=== PATIENT | female | born 1990 | race Caucasian/White ===

== ENCOUNTER 2016-12-26 05:25 | Inpatient (IN) | payer OTHER ==
[2016-12-26] MEDS ORDERED: ceFAZolin 2 GM in Premix Bag 1 BAG IV ONE (05:45)
[2016-12-26] MEDS ORDERED: Oxytocin 10 Units/1 ML SDV IM PRN (05:45)
[2016-12-26] MEDS ORDERED: Citric Acid/Sodium Citrate Solution 30 ML Cup PO ONE (05:45)
[2016-12-26] MEDS ORDERED: Sodium Chloride 0.9% 10 ML Syringe FLUSH PRN (05:45)
[2016-12-26] MEDS ORDERED: Sodium Chloride 0.9% 2.5 ML Syringe FLUSH PRN (05:45)
--- NOTE | 2016-12-26 06:48 | PCM.PREANE ---
Preanesthetic Assessment - Anesthesia/Transfusion/Family Hx Anesthesia History: Prior Anesthesia Without Reaction Family History of Anesthesia Reaction: No Transfusion History: Prior Transfusion Without Reaction Intubation History: Unknown - Review of Systems General: No Symptoms Pulmonary: No Symptoms Cardiovascular: No Symptoms Gastrointestinal: No symptoms Neurological: No Symptoms Other: Reports: None - Physical Assessment Height: 1.68 m Weight: 86.183 kg ASA Class: 2 Mental Status: Alert & Oriented x3 Airway Class: Mallampati = 2 Dentition: Reports: Normal Dentition Thyro-Mental Finger Breadths: 3 Mouth Opening Finger Breadths: 3 ROM/Head Extension: Full Lungs: Clear to auscultation, Normal respiratory effort Cardiovascular: Regular Rate, Regular Rhythm - Lab Values: Laboratory Last Values WBC 9.08 K/uL (4.0-11.0) 12/25/16 12:38 RBC 4.06 M/uL (4.30-5.90) L 12/25/16 12:38 Hgb 12.1 g/dL (12.0-16.0) 12/25/16 12:38 Hct 35.7 % (36.0-46.0) L 12/25/16 12:38 MCV 87.9 fL (80.0-98.0) 12/25/16 12:38 MCH 29.8 pg (27.0-32.0) 12/25/16 12:38 MCHC 33.9 g/dL (31.0-37.0) 12/25/16 12:38 RDW Std Deviation 41.7 fl (28.0-62.0) 12/25/16 12:38 RDW Coeff of Ada 13 % (11.0-15.0) 12/25/16 12:38 Plt Count 206 K/uL (150-400) 12/25/16 12:38 MPV 8.90 fL (7.40-12.00) 12/25/16 12:38 Nucleated RBC % 0.0 /100WBC 12/25/16 12:38 Nucleated RBCs # 0 K/uL 12/25/16 12:38 Blood Type A POSITIVE 12/25/16 12:38 Antibody Screen NEGATIVE 12/25/16 12:38 - Allergies Allergies/Adverse Reactions: Allergies Allergy/AdvReac Type Severity Reaction Status Date / Time No Known Allergies Allergy Verified 12/24/16 10:41 - Blood Blood Available: No - Anesthesia Plan Pre-Op Medication Ordered: None - Acknowledgements Anesthesia Type Planned: Spinal Pt an Appropriate Candidate for the Planned Anesthesia: Yes Alternatives and Risks of Anesthesia Discussed w Pt/Guardian: Yes Pt/Guardian Understands and Agrees with Anesthesia Plan: Yes PreAnesthesia Questionnaire HEENT History: Reports: None Cardiovascular History: Reports: None Other Cardiovascular History: hypertension in Respiratory History: Reports: None Gastrointestinal History: Reports: GERD Other Gastrointestinal History: during Genitourinary History: Reports: None FRIT MIXER History: Reports: Musculoskeletal History: Reports: None Neurological History: Reports: None, Seizure Other Neuro History: Siezures with illness prior to 1 1/2 years of age, resolved Psychiatric History: Reports: None Endocrine/Metabolic History: Reports: Obesity/BMI 30+ Hematologic History: Reports: Blood Transfusion(s) Other Hematologic History: with last Immunologic History: Reports: None Oncologic (Cancer) History: Reports: None Dermatologic History: Reports: None - Infectious Disease History Infectious Disease History: Reports: Chicken Pox, Human Papilloma Virus (HPV), Measles - Past Surgical History Head Surgeries/Procedures: Reports: None HEENT Surgical History: Reports: None Cardiovascular Surgical History: Reports: None Respiratory Surgical History: Reports: None GI Surgical History: Reports: None Female Surgical History: Reports: Section (under epidural) Endocrine Surgical History: Reports: None Neurological Surgical History: Reports: None Musculoskeletal Surgical History: Reports: None Oncologic Surgical History: Reports: None Dermatological Surgical History: Reports: None - SUBSTANCE USE Smoking Status *Q: Never Smoker Second Hand Smoke Exposure: No Recreational Drug Use History: No - HOME MEDS Home Medications: Home Meds PNV95/Ferrous Fumarate/FA [ Multivitamins] 1 each PO DAILY 01/05/15 [ History] - CURRENT (IN HOUSE) MEDS Current Meds: Current Medications Lactated Ringer's (Ringers, Lactated) 1,000 mls @ 500 mls/hr IV .BOLUS SMITH Oxytocin (Pitocin) 10 unit IM ASDIRECTED PRN PRN Reason: Excessive vaginal bleeding Sodium Chloride (Saline Flush) 10 ml FLUSH ASDIRECTED PRN PRN Reason: Keep Vein Open Sodium Chloride (Saline Flush) 2.5 ml FLUSH ASDIRECTED PRN PRN Reason: Keep Vein Open Discontinued Medications Citric Acid/Sodium Citrate (Bicitra Solution) 30 ml PO ONETIME ONE Stop: 12/26/16 05:46 Cefazolin Sodium/Dextrose 2 gm (/ Premix) 50 mls @ 100 mls/hr IV ONETIME ONE Stop: 12/26/16 06:14
[2016-12-26] MEDS ORDERED: Oxytocin 10 Units/1 ML SDV ONE ×2 (07:16)
[2016-12-26] MEDS ORDERED: Propofol 200 MG/20 ML SDV ONE (07:16)
[2016-12-26] MEDS ORDERED: Ondansetron 4 MG/2 ML SDV ONE (07:17)
[2016-12-26] MEDS ORDERED: Morphine PF 10 MG/10 ML SDV ONE (07:17)
[2016-12-26] MEDS ORDERED: Ketorolac 30 MG/ML SDV ONE (07:17)
[2016-12-26] MEDS ORDERED: ePHEDrine 50 MG/ML SDV ONE (07:25)
[2016-12-26] MEDS: Lactated Ringers 1,000 ML IV SCH ×3 (07:29→08:03)
[2016-12-26] MEDS ORDERED: fentaNYL 100 MCG/2 ML SDV ONE (08:26)
[2016-12-26] MEDS ORDERED: Phenylephrine/Normal Saline 100 MCG/ML 10 ML Syringe ONE (08:42)
[2016-12-26] MEDS ORDERED: Bisacodyl 10 MG Supp RECTAL PRN (08:57)
[2016-12-26] MEDS ORDERED: Aluminum Hydroxide/Magnesium Hydroxide/Simethicone Susp 30 ML Cup PO PRN (08:57)
[2016-12-26] MEDS ORDERED: Ondansetron 4 MG/2 ML SDV IV PRN (08:57)
[2016-12-26] MEDS ORDERED: Simethicone 80 MG Tab.Chew PO PRN (08:57)
[2016-12-26] MEDS ORDERED: Acetaminophen/oxyCODONE 325-5 MG Tab PO PRN ×2 (08:57)
[2016-12-26] MEDS ORDERED: Lanolin 100% Cream 7 GM Tube TOP PRN (08:57)
[2016-12-26] MEDS ORDERED: diphenhydrAMINE 50 MG/ML SDV IVPUSH PRN ×2 (08:57→09:47)
[2016-12-26] MEDS ORDERED: Lactated Ringers 1,000 ML IV SCH (09:00)
--- NOTE | 2016-12-26 09:07 | PCM.OPNOTE ---
- General Post-Op/Procedure Note Date of Surgery/Procedure: 12/26/16 Operative Procedure(s): Repeat LTCS Findings: Term female APGARs 7, 9 weight 3310 gm. Intact placenta with 3V cord Normal appearing pelvis Thin lower uterine segment light meconium stained amniotic fluid Pre Op Diagnosis: 39 week IUP. Previous c section, desires repeat Post-Op Diagnosis: Same Anesthesia Technique: Spinal Primary Surgeon: Rupinder Fischer Fluid Replacement, Intraop: 3,000 EBL in mLs: 400 Condition: Good Free Text/Narrative:: Dictation [id number]
[2016-12-26] MEDS: Ketorolac 30 MG/ML SDV IVPUSH SCH ×3 (09:29→23:19)
[2016-12-26] MEDS ORDERED: fentaNYL 100 MCG/2 ML SDV IVPUSH PRN (09:43)
[2016-12-26] MEDS ORDERED: Naloxone 0.4 MG/ML Syringe IVPUSH PRN (09:43)
[2016-12-26] MEDS ORDERED: Nalbuphine 10 MG/1 ML Vial IVPUSH PRN (09:43)
--- NOTE | 2016-12-26 11:35 | OR ---
SURGEON: Rupinder Fischer M.D. DATE OF PROCEDURE: 12/26/2016 PREOPERATIVE DIAGNOSES: 1. A 39-week intrauterine . 2. Previous section, desires repeat. POSTOPERATIVE DIAGNOSES: 1. A 39 weeks intrauterine . 2. Previous section, desires repeat. PROCEDURE: A repeat low transverse section. ESTIMATED BLOOD LOSS: 400 mL. ANESTHESIA: Spinal. FLUIDS: 3000 mL crystalloid. COMPLICATIONS: None. FINDINGS: Term female, score 7 at 1 minute, 9 at 5 minutes. Weight of 3310 g. Intact placenta, 3-vessel cord. Normal appearing pelvis. Quite thin lower uterine segment noted upon entry and light meconium-stained amniotic fluid observed. DISPOSITION: The patient to PACU, infant to nursery, stable. PROCEDURE IN DETAIL: Jaquelin is a 26-year-old G2, P1, at 39 weeks gestation, presents today for a scheduled repeat delivery. Risks of procedure have been discussed with her. Proper consent obtained. The patient was taken to the operating room, where she underwent spinal anesthetic, was then placed in dorsal supine position with leftward tilt. SCDs to lower extremities. Moss to gravity. She was prepped and draped in usual sterile fashion. Time-out was performed. Anesthesia was tested and found to be adequate. Previous Pfannenstiel scar was now excised, carried down the level of the rectus fascia, which was incised midline and lateralized on either side sharply and bluntly. Superior aspect of the fascia was tented upward, dissected sharply and bluntly away from underlying muscles. Similar aspect was performed at the inferior aspect of fascia. Rectus muscles were now gently dissected in the midline. Peritoneum was entered. Rectus muscle and peritoneum was now lateralized bluntly. Uterine position, position palpated. There was a large amount of dilated vein along the left lateral aspect of the uterus. Care was taken to not enter into this region when performing hysterotomy. The bladder flap was created sharply and bluntly. Bladder was mobilized away from the lower uterine segment. At this juncture, the peritoneal window was visualized along the right lateral aspect of the lower uterine segment. This was entered with blunt end of the scalpel. Hysterotomy was now lateralized bluntly. Amniotomy was performed. Light meconium-stained amniotic fluid was returned. Infant's head is flexed and rotated to an OA position. Fundal pressure was applied. The 's head was delivered followed by anterior shoulder, posterior shoulder, remainder of the body. The infant's oropharynx and nares bulb suctioned. Cord clamped x2 and cut. Infant was handed off to attending nursing staff. Cord arterial, cord venous, cord blood sampling was obtained. The placenta was now delivered. Uterine cavity was cleared of all clot and debris. Hysterotomy repaired using 0 Vicryl in continuous running locked fashion followed by re-imbricating layer. Posterior aspect of the uterus inspected, no defects or hematomas found to be forming. The region was well irrigated suction dried. Colonic gutters were cleared of all clot and debris, well irrigated suction dried. There was an area of oozing along the left lateral aspect of the hysterotomy, repaired with a re-imbricating [id number] suture. Hemostasis thereafter evident except for some mild serosal oozing, which was cauterized. Hemostasis thereafter evident. Self-retaining retractors now gently removed. Bladder blade was placed. Hysterotomy was again inspected, found to be hemostatic. Bladder blade removed. The rectus muscle was now reapproximated using 0 Vicryl with inverted mattress suture technique. Anterior aspect of the muscle and posterior aspect of the fascia was closely inspected. Any areas of oozing were cauterized. The rectus fascia was reapproximated using 0 Vicryl in continuous running fashion beginning laterally on either side meeting in the midline. Subcutaneous tissue was well irrigated suction dried. Any areas of oozing were cauterized. The skin edges were now reapproximated using 3-0 Vicryl on a Gigi needle subcuticular fashion and re-imbricated with 1/2-inch Steri-Strips and Mastisol. Sponge, instrument, and needle counts correct x3. The uterus remained firm. Hemostasis evident. The patient tolerated the procedure well. She will go to PACU in stable condition and infant to nursery. JIM / MICHELLE /[id number]
--- NOTE | 2016-12-26 20:38 | PCM48HPAN ---
Post Anesthesia Note - EVALUATION WITHIN 48HRS OF ANESTHETIC Vital Signs in Normal Range: Yes Patient Participated in Evaluation: Yes Respiratory Function Stable: Yes Airway Patent: Yes Cardiovascular Function Stable: Yes Hydration Status Stable: Yes Pain Control Satisfactory: Yes Nausea and Vomiting Control Satisfactory: Yes Mental Status Recovered: Yes
[2016-12-26] MEDS: Docusate Sodium 100 MG Cap PO SCH (23:22)
[2016-12-27] MEDS: Ketorolac 30 MG/ML SDV IVPUSH SCH ×2 (05:15→21:08)
[2016-12-27] MEDS: Docusate Sodium 100 MG Cap PO SCH ×3 (08:28→21:14)
--- NOTE | 2016-12-27 10:57 | PCM.PNPP ---
- General Info Date of Service: 12/27/16 Functional Status: Reports: pain controlled, tolerating diet, ambulating, urinating - Review of Systems General: Denies: Fever, Weakness Cardiovascular: Denies: Chest Pain, Palpitations, Lightheadedness Gastrointestinal: Reports: Flatus. Denies: Nausea, Vomiting Genitourinary: Denies: flank pain Psychiatric: Reports: no symptoms - General Info Date of Service: 12/27/16 - Patient Data Vital Signs - most recent: Last Vital Signs Temp 36.8 C 12/27/16 08:00 Pulse 91 12/27/16 08:00 Resp 15 12/27/16 08:00 BP 107/55 L 12/27/16 08:00 Pulse Ox 97 12/27/16 08:00 Weight - most recent: 86.183 kg I&O - last 24 hours: Intake & Output 12/26/16 12/27/16 12/27/16 22:59 06:59 14:59 Intake Total 1150 Output Total 600 100 Balance 550 -100 Lab Results - last 24 hrs: Laboratory Results - last 24 hr 12/27/16 Range/Units 05:48 Hgb 8.6 L (12.0-16.0) g/dL Hct 25.1 L (36.0-46.0) % Med Orders - Current: Current Medications Al Hydroxide/Mg Hydroxide (Mag-Al Plus) 30 ml PO Q8H PRN PRN Reason: Heartburn Bisacodyl (Dulcolax) 10 mg RECTAL .ONCE PRN PRN Reason: Constipation Diphenhydramine HCl (Benadryl) 25 mg IVPUSH Q6H PRN PRN Reason: Itching or Nausea Docusate Sodium (Colace) 100 mg PO BID [facility]END[facility] TO [facility] Last Admin: 12/27/16 08:28 Dose: 100 mg Emollient Ointment (Lansinoh Hpa) 0 gm TOP ASDIRECTED PRN PRN Reason: Sore Nipples Lactated Ringer's (Ringers, Lactated) 1,000 mls @ 500 mls/hr IV .BOLUS [facility] Last Admin: 12/26/16 08:03 Dose: 999 mls/hr Lactated Ringer's (Ringers, Lactated) 1,000 mls @ 125 mls/hr IV ASDIRECTED [facility]END[facility] TO [facility] Last Admin: 12/26/16 13:37 Dose: 125 mls/hr Ibuprofen (Motrin) 800 mg PO Q8H PRN PRN Reason: mild pain or fever Ondansetron HCl (Zofran) 4 mg IV Q4H PRN PRN Reason: Nausea/Vomiting Last Admin: 12/26/16 12:09 Dose: 4 mg Oxycodone/Acetaminophen (Percocet 325-5 Mg) 1 tab PO Q4H PRN PRN Reason: Pain (moderate 4-6) Oxycodone/Acetaminophen (Percocet 325-5 Mg) 2 tab PO Q4H PRN PRN Reason: Pain (moderate 4-6) Oxytocin (Pitocin) 10 unit IM ASDIRECTED PRN PRN Reason: Excessive vaginal bleeding Simethicone (Simethicone) 80 mg PO Q4H PRN PRN Reason: Gas Sodium Chloride (Saline Flush) 10 ml FLUSH ASDIRECTED PRN PRN Reason: Keep Vein Open Sodium Chloride (Saline Flush) 2.5 ml FLUSH ASDIRECTED PRN PRN Reason: Keep Vein Open Discontinued Medications Citric Acid/Sodium Citrate (Bicitra Solution) 30 ml PO ONETIME ONE Stop: 12/26/16 05:46 Last Admin: 12/26/16 07:29 Dose: 30 ml Diphenhydramine HCl (Benadryl) 25 mg IVPUSH Q6H PRN PRN Reason: Itching or Nausea Ephedrine Sulfate (Ephedrine Sulfate) Confirm Administered Dose 50 mg .ROUTE .STK-MED ONE Stop: 12/26/16 07:26 Fentanyl (Sublimaze) Confirm Administered Dose 100 mcg .ROUTE .STK-MED ONE Stop: 12/26/16 08:27 Fentanyl (Sublimaze) 50 mcg IVPUSH Q5M PRN PRN Reason: Pain (severe 7-10) Stop: 12/27/16 09:46 Cefazolin Sodium/Dextrose 2 gm (/ Premix) 50 mls @ 100 mls/hr IV ONETIME ONE Stop: 12/26/16 06:14 Ketorolac Tromethamine (Toradol) Confirm Administered Dose 30 mg .ROUTE .STK- MED ONE Stop: 12/26/16 07:18 Ketorolac Tromethamine (Toradol) 30 mg IVPUSH Q6H SMITH Stop: 12/27/16 09:01 Last Admin: 12/27/16 05:15 Dose: 30 mg Morphine Sulfate (Duramorph Pf) Confirm Administered Dose 10 mg .ROUTE .STK-MED ONE Stop: 12/26/16 07:18 Nalbuphine HCl (Nubain) 5 mg IVPUSH Q3H PRN PRN Reason: Pruritis Stop: 12/27/16 09:45 Naloxone HCl (Narcan) 0.1 mg IVPUSH ONETIME PRN PRN Reason: Respiratory Depression Stop: 12/27/16 09:45 Ondansetron HCl (Zofran) Confirm Administered Dose 4 mg .ROUTE .STK-MED ONE Stop: 12/26/16 07:18 Oxytocin (Pitocin) Confirm Administered Dose 10 unit .ROUTE .STK-MED ONE Stop: 12/26/16 07:17 Oxytocin (Pitocin) Confirm Administered Dose 10 unit .ROUTE .STK-MED ONE Stop: 12/26/16 07:17 Phenylephrine HCl (Phenylephrine In Ns 100 Mcg/Ml) Confirm Administered Dose 1 mg .ROUTE .STK-MED ONE Stop: 12/26/16 08:43 Propofol (Diprivan 20 Ml) Confirm Administered Dose 200 mg .ROUTE .STK-MED ONE Stop: 12/26/16 07:17 - Interaction Infant Disposition, : in Room with Family Infant Interaction: Holding Infant Feeding: Breastfed ; Nursed Well Support Person: - Recovery Exam Fundal Tone: Firm Fundal Level: 2 Fingerbreadths Below Umbilicus Fundal Placement: Midline Lochia Amount: Scant Lochia Color: Rubra/Red Perineum Description: Intact, Minimal Bruising/Swelling Episiotomy/Laceration: None Bladder Status: Voiding Urinary Elimination: Voided - Exam General: alert, oriented Lungs: Normal respiratory effort Cardiovascular: Regular Rate, Regular Rhythm Abdomen: bowel sounds present, soft. No: CVA tenderness Extremities: no calf tenderness Wound/Incisions: healing well, dressing dry and intact Psy/Mental Status: alert, normal affect - Problem List & Annotations (1) delivery delivered SNOMED Code(s): 346092074 Code(s): O82 - ENCOUNTER FOR DELIVERY WITHOUT INDICATION Status: Acute Current Visit: No - Problem List Review Problem List Initiated/Reviewed/Updated: Yes - My Orders Last 24 Hours: My Active Orders 12/26/16 Lunch Regular Diet [DIET] - Assessment Assessment:: POD 1 status post repeat c section - Plan Plan:: Patient is doing well overall--ambulate halls, may shower. Continue postoperative cares.
[2016-12-27] MEDS: Ibuprofen 800 MG Tab PO PRN (17:55)
[2016-12-28] MEDS: Ibuprofen 800 MG Tab PO PRN (05:11)
[2016-12-28 08:30] VITALS: BP 126/75
--- NOTE | 2016-12-28 09:20 | PCM.PNPP ---
- General Info Date of Service: 12/28/16 Functional Status: Reports: pain controlled, tolerating diet, ambulating, urinating - Review of Systems General: Denies: Fever, Weakness Pulmonary: Denies: shortness of breath, pleuritic chest pain Cardiovascular: Denies: Chest Pain, Palpitations, Lightheadedness Gastrointestinal: Denies: Flatus, Nausea, Vomiting Genitourinary: Denies: flank pain Psychiatric: Reports: no symptoms - General Info Date of Service: 12/28/16 - Patient Data Vital Signs - most recent: Last Vital Signs Temp 36.7 C 12/28/16 08:00 Pulse 91 12/28/16 08:00 Resp 17 12/28/16 08:00 BP 126/75 12/28/16 08:00 Pulse Ox 97 12/28/16 08:00 Weight - most recent: 86.183 kg Med Orders - Current: Current Medications Al Hydroxide/Mg Hydroxide (Mag-Al Plus) 30 ml PO Q8H PRN PRN Reason: Heartburn Bisacodyl (Dulcolax) 10 mg RECTAL .ONCE PRN PRN Reason: Constipation Diphenhydramine HCl (Benadryl) 25 mg IVPUSH Q6H PRN PRN Reason: Itching or Nausea Docusate Sodium (Colace) 100 mg PO BID [facility] Last Admin: 12/27/16 21:14 Dose: 100 mg Emollient Ointment (Lansinoh Hpa) 0 gm TOP ASDIRECTED PRN PRN Reason: Sore Nipples Lactated Ringer's (Ringers, Lactated) 1,000 mls @ 500 mls/hr IV .BOLUS [facility] Last Admin: 12/26/16 08:03 Dose: 999 mls/hr Lactated Ringer's (Ringers, Lactated) 1,000 mls @ 125 mls/hr IV ASDIRECTED [facility] Last Admin: 12/26/16 13:37 Dose: 125 mls/hr Ibuprofen (Motrin) 800 mg PO Q8H PRN PRN Reason: mild pain or fever Last Admin: 12/28/16 05:11 Dose: 800 mg Ondansetron HCl (Zofran) 4 mg IV Q4H PRN PRN Reason: Nausea/Vomiting Last Admin: 12/26/16 12:09 Dose: 4 mg Oxycodone/Acetaminophen (Percocet 325-5 Mg) 1 tab PO Q4H PRN PRN Reason: Pain (moderate 4-6) Oxycodone/Acetaminophen (Percocet 325-5 Mg) 2 tab PO Q4H PRN PRN Reason: Pain (moderate 4-6) Oxytocin (Pitocin) 10 unit IM ASDIRECTED PRN PRN Reason: Excessive vaginal bleeding Simethicone (Simethicone) 80 mg PO Q4H PRN PRN Reason: Gas Sodium Chloride (Saline Flush) 10 ml FLUSH ASDIRECTED PRN PRN Reason: Keep Vein Open Sodium Chloride (Saline Flush) 2.5 ml FLUSH ASDIRECTED PRN PRN Reason: Keep Vein Open Discontinued Medications Citric Acid/Sodium Citrate (Bicitra Solution) 30 ml PO ONETIME ONE Stop: 12/26/16 05:46 Last Admin: 12/26/16 07:29 Dose: 30 ml Diphenhydramine HCl (Benadryl) 25 mg IVPUSH Q6H PRN PRN Reason: Itching or Nausea Ephedrine Sulfate (Ephedrine Sulfate) Confirm Administered Dose 50 mg .ROUTE .STK-MED ONE Stop: 12/26/16 07:26 Fentanyl (Sublimaze) Confirm Administered Dose 100 mcg .ROUTE .STK-MED ONE Stop: 12/26/16 08:27 Fentanyl (Sublimaze) 50 mcg IVPUSH Q5M PRN PRN Reason: Pain (severe 7-10) Stop: 12/27/16 09:46 Cefazolin Sodium/Dextrose 2 gm (/ Premix) 50 mls @ 100 mls/hr IV ONETIME ONE Stop: 12/26/16 06:14 Last Admin: 12/27/16 21:09 Dose: Not Given Ketorolac Tromethamine (Toradol) Confirm Administered Dose 30 mg .ROUTE .STK- MED ONE Stop: 12/26/16 07:18 Ketorolac Tromethamine (Toradol) 30 mg IVPUSH Q6H SMITH Stop: 12/27/16 09:01 Last Admin: 12/27/16 21:08 Dose: Not Given Morphine Sulfate (Duramorph Pf) Confirm Administered Dose 10 mg .ROUTE .STK-MED ONE Stop: 12/26/16 07:18 Nalbuphine HCl (Nubain) 5 mg IVPUSH Q3H PRN PRN Reason: Pruritis Stop: 12/27/16 09:45 Naloxone HCl (Narcan) 0.1 mg IVPUSH ONETIME PRN PRN Reason: Respiratory Depression Stop: 12/27/16 09:45 Ondansetron HCl (Zofran) Confirm Administered Dose 4 mg .ROUTE .STK-MED ONE Stop: 12/26/16 07:18 Oxytocin (Pitocin) Confirm Administered Dose 10 unit .ROUTE .STK-MED ONE Stop: 12/26/16 07:17 Oxytocin (Pitocin) Confirm Administered Dose 10 unit .ROUTE .STK-MED ONE Stop: 12/26/16 07:17 Phenylephrine HCl (Phenylephrine In Ns 100 Mcg/Ml) Confirm Administered Dose 1 mg .ROUTE .STK-MED ONE Stop: 12/26/16 08:43 Propofol (Diprivan 20 Ml) Confirm Administered Dose 200 mg .ROUTE .STK-MED ONE Stop: 12/26/16 07:17 - Infant Interaction Infant Disposition, : [place] in Room with Family Infant Interaction: Holding Infant Feeding: Breastfed ; Nursed Well Support Person: - Recovery Exam Fundal Tone: Firm Fundal Level: 2 Fingerbreadths Below Umbilicus Fundal Placement: Midline Lochia Amount: Scant Lochia Color: Rubra/Red Perineum Description: Intact, Minimal Bruising/Swelling Episiotomy/Laceration: None Bladder Status: Voiding Urinary Elimination: Voided - Exam General: alert, oriented Lungs: Normal respiratory effort Cardiovascular: Regular Rate, Regular Rhythm Abdomen: bowel sounds present, soft. No: CVA tenderness Skin: warm, dry, intact Psy/Mental Status: alert, normal affect - Problem List & Annotations (1) delivery delivered SNOMED Code(s): 198348046 Code(s): O82 - ENCOUNTER FOR DELIVERY WITHOUT INDICATION Status: Acute Current Visit: No - Problem List Review Problem List Initiated/Reviewed/Updated: Yes - My Orders Last 24 Hours: My Active Orders 12/28/16 09:16 Ready for Discharge [RC] PER UNIT ROUTINE - Assessment Assessment:: POD 2 status post repeat c section - Plan Plan:: Patient is feeling well, would like to go home today. Discharge instructions reviewed. Infection and bleeding warnings reviewed. Discharge instructions reviewed.
== END 2016-12-28 11:05 | disposition home or self-care (01) | DRG 766 ==
LOC: MW.OB 05:48
PROVIDERS: ADMIT Obstetrics & Gynecology; ATTEND Obstetrics & Gynecology
PROC: 10D00Z1 Extraction of Products of Conception, Low, Open Approach (ICD-10-PCS; principal; 2016-12-26)
DX: O34.211 Maternal care for low transverse scar from previous cesarean delivery (principal); Z3A.39 39 weeks gestation of pregnancy; Z37.0 Single live birth
CPT/HCPCS: 01961; 36415; 59025; 85014; 85018; 85027; 86850; 86900; 86901; A9270-GY; J1885; J2270; J2405; J2590; J2704; J3010; J7120

== ENCOUNTER 2018-12-14 09:52 | Inpatient (IN) | payer OTHER ==
[2018-12-14] MEDS: Lactated Ringers 1,000 ML IV SCH ×3 (10:20→11:40)
[2018-12-14] MEDS ORDERED: Sodium Chloride 0.9% 10 ML SDV IV PRN (10:29)
[2018-12-14] MEDS ORDERED: ceFAZolin 2 GM in Premix Bag 1 BAG IV ONE (10:29)
[2018-12-14] MEDS ORDERED: Sodium Chloride 0.9% 10 ML Syringe FLUSH PRN (10:29)
[2018-12-14] MEDS ORDERED: Sodium Chloride 0.9% 2.5 ML Syringe FLUSH PRN (10:29)
[2018-12-14] MEDS ORDERED: Oxytocin/0.9 % Sodium Chloride 30 UNIT/500 ML BAG IV SCH (10:30)
[2018-12-14] MEDS ORDERED: Oxytocin/0.9 % Sodium Chloride 30 UNIT/500 ML BAG ONE (11:28)
[2018-12-14] MEDS ORDERED: Morphine PF 10 MG/10 ML SDV ONE (11:28)
[2018-12-14] MEDS ORDERED: Citric Acid/Sodium Citrate Solution 30 ML Cup PO ONE (11:30)
--- NOTE | 2018-12-14 11:41 | PCM.PREANE ---
Preanesthetic Assessment - Anesthesia/Transfusion/Family Hx Anesthesia History: Prior Anesthesia Without Reaction Family History of Anesthesia Reaction: No Transfusion History: Prior Transfusion Without Reaction Intubation History: Unknown - Review of Systems General: No Symptoms Pulmonary: No Symptoms Cardiovascular: No Symptoms Gastrointestinal: No Symptoms Neurological: No Symptoms Other: Reports: None - Physical Assessment Height: 5 ft 6 in Weight: 83.915 kg ASA Class: 2 Mental Status: Alert & Oriented x3 Airway Class: Mallampati = 2 Dentition: Reports: Normal Dentition Thyro-Mental Finger Breadths: 3 Mouth Opening Finger Breadths: 3 ROM/Head Extension: Full Lungs: Clear to Auscultation, Normal Respiratory Effort Cardiovascular: Regular Rate, Regular Rhythm - Lab Values: Laboratory Last Values WBC 5.91 K/uL (4.0-11.0) 12/14/18 10:20 RBC 3.61 M/uL (4.30-5.90) L 12/14/18 10:20 Hgb 10.5 g/dL (12.0-16.0) L 12/14/18 10:20 Hct 31.5 % (36.0-46.0) L 12/14/18 10:20 MCV 87.3 fL (80.0-98.0) 12/14/18 10:20 MCH 29.1 pg (27.0-32.0) 12/14/18 10:20 MCHC 33.3 g/dL (31.0-37.0) 12/14/18 10:20 RDW Std Deviation 43.0 fl (28.0-62.0) 12/14/18 10:20 RDW Coeff of Ada 14 % (11.0-15.0) 12/14/18 10:20 Plt Count 178 K/uL (150-400) 12/14/18 10:20 MPV 9.20 fL (7.40-12.00) 12/14/18 10:20 Nucleated RBC % 0.0 /100WBC 12/14/18 10:20 Nucleated RBCs # 0 K/uL 12/14/18 10:20 - Allergies Allergies/Adverse Reactions: Allergies Allergy/AdvReac Type Severity Reaction Status Date / Time sulfamethoxazole Allergy Hives Verified 12/09/18 13:57 [From Bactrim] trimethoprim [From Bactrim] Allergy Hives Verified 12/09/18 13:57 - Blood Blood Available: No - Anesthesia Plan Pre-Op Medication Ordered: None - Acknowledgements Anesthesia Type Planned: Spinal (general anesthesia back-up plan) Pt an Appropriate Candidate for the Planned Anesthesia: Yes Alternatives and Risks of Anesthesia Discussed w Pt/Guardian: Yes Pt/Guardian Understands and Agrees with Anesthesia Plan: Yes PreAnesthesia Questionnaire HEENT History: Reports: None Cardiovascular History: Reports: None Respiratory History: Reports: None Gastrointestinal History: Reports: GERD Other Gastrointestinal History: during Genitourinary History: Reports: None REHABILITATION ASSISTANT History: Reports: Musculoskeletal History: Reports: None Neurological History: Reports: Seizure Other Neuro History: 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, Psychiatric History: Reports: None Endocrine/Metabolic History: Reports: None Hematologic History: Reports: Anemia, Blood Transfusion(s) Other Hematologic History: transfusion with first Immunologic History: Reports: None Oncologic (Cancer) History: Reports: None Dermatologic History: Reports: None - Infectious Disease History Infectious Disease History: Reports: Chicken Pox, Human Papilloma Virus (HPV), Measles - Past Surgical History Head Surgeries/Procedures: Reports: None HEENT Surgical History: Reports: None Cardiovascular Surgical History: Reports: None Respiratory Surgical History: Reports: None GI Surgical History: Reports: None Female Surgical History: Reports: Section (x2) Endocrine Surgical History: Reports: None Neurological Surgical History: Reports: None Musculoskeletal Surgical History: Reports: None Oncologic Surgical History: Reports: None Dermatological Surgical History: Reports: None - SUBSTANCE USE Smoking Status *Q: Never Smoker Recreational Drug Use History: No - HOME MEDS Home Medications: Home Meds PNV95/Ferrous Fumarate/FA [ Multivitamins] 1 each PO DAILY 01/05/15 [ History] Calcium Carbonate [Tums] 1 tab.chew CHEW ASDIRECTED PRN 12/09/18 [History] - CURRENT (IN HOUSE) MEDS Current Meds: Current Medications Lactated Ringer's (Ringers, Lactated) 1,000 mls @ 500 mls/hr IV BOLUS [facility] Last Admin: 12/14/18 11:12 Dose: 500 mls/hr Oxytocin/Sodium Chloride (Oxytocin 30 Unit/500 Ml-Ns) 30 unit in 500 mls @ 250 mls/hr IV TITRATE [facility] Sodium Chloride (Saline Flush) 10 ml FLUSH ASDIRECTED PRN PRN Reason: Keep Vein Open Sodium Chloride (Saline Flush) 2.5 ml FLUSH ASDIRECTED PRN PRN Reason: Keep Vein Open Sodium Chloride (Normal Saline) 10 ml IV ASDIRECTED PRN PRN Reason: IV Use Discontinued Medications Citric Acid/Sodium Citrate (Bicitra Solution) 30 ml PO ONETIME ONE Stop: 12/14/18 11:31 Cefazolin Sodium/Dextrose 2 gm (/ Premix) 50 mls @ 100 mls/hr IV ONETIME ONE Stop: 12/14/18 10:58 Oxytocin/Sodium Chloride (Oxytocin 30 Unit/500 Ml-Ns) Confirm Administered Dose 30 unit in 500 mls @ as directed .ROUTE .STK-MED ONE Stop: 12/14/18 11:29 Morphine Sulfate (Duramorph Pf) Confirm Administered Dose 10 mg .ROUTE .STK-MED ONE Stop: 12/14/18 11:29
[2018-12-14] MEDS ORDERED: ceFAZolin/Dextrose,Iso-Osmotic 2 GM/50 ML Duplex Bag IV ONE (12:17)
[2018-12-14] MEDS ORDERED: Octyl 2-Cyanoacrylate 1 Tube ONE (12:36)
[2018-12-14] MEDS ORDERED: ePHEDrine 50 MG/ML SDV ONE (12:50)
[2018-12-14] MEDS ORDERED: Phenylephrine/Normal Saline 100 MCG/ML 10 ML Syringe ONE (12:50)
[2018-12-14] MEDS ORDERED: Acetaminophen/oxyCODONE 325-5 MG Tab PO PRN ×3 (12:57→13:10)
[2018-12-14] MEDS ORDERED: Aluminum Hydroxide/Magnesium Hydroxide/Simethicone Susp 30 ML Cup PO PRN (12:57)
[2018-12-14] MEDS ORDERED: Bisacodyl 10 MG Supp RECTAL PRN (12:57)
[2018-12-14] MEDS ORDERED: Ondansetron 4 MG/2 ML SDV IVPUSH PRN ×2 (12:57→13:10)
[2018-12-14] MEDS ORDERED: diphenhydrAMINE 50 MG/ML SDV IVPUSH PRN ×2 (12:57→13:10)
[2018-12-14] MEDS ORDERED: Lanolin 100% Cream 7 GM Tube TOP PRN (12:57)
[2018-12-14] MEDS ORDERED: Lactated Ringers 1,000 ML IV SCH (13:00)
--- NOTE | 2018-12-14 13:06 | PCM.OPNOTE ---
- General Post-Op/Procedure Note Date of Surgery/Procedure: 12/14/18 Operative Procedure(s): Repeat LTCS Findings: Viable female APGARs 9, 9 weight 3890 gm. Intact placenta with 3V cord. Pre Op Diagnosis: 39/5 week IUP. Previous c section x 2--desires repeat Post-Op Diagnosis: Same Anesthesia Technique: Spinal Primary Surgeon: Rupinder Fischer Fluid Replacement, Intraop: 2,500 EBL in mLs: 600 Complications: none known Condition: Good Free Text/Narrative:: Dictation [id number]
[2018-12-14] MEDS ORDERED: fentaNYL 100 MCG/2 ML SDV IVPUSH PRN (13:10)
[2018-12-14] MEDS ORDERED: Naloxone 0.4 MG/ML Syringe IVPUSH PRN (13:10)
[2018-12-14] MEDS ORDERED: Nalbuphine 10 MG/1 ML Vial IVPUSH PRN (13:10)
[2018-12-14] MEDS: Ketorolac 30 MG/ML SDV IVPUSH SCH ×2 (13:17→19:09)
[2018-12-14] MEDS: Simethicone 80 MG Tab.Chew PO SCH (19:09)
--- NOTE | 2018-12-14 20:18 | OR ---
SURGEON: Rupinder Fischer M.D. DATE OF PROCEDURE: 12/14/2018 PREOPERATIVE DIAGNOSES: 1. 39-5/7th week . 2. Previous section, desires repeat. POSTOPERATIVE DIAGNOSIS: 1. 39-5/7th week . 2. Previous section, desires repeat. PROCEDURE PERFORMED: Repeat low-transverse section. PRIMARY SURGEON: Rupinder Fischer M.D. SUPERVISOR REMELT: Laurence Dubose. ANESTHESIA: Spinal. ESTIMATED BLOOD LOSS: 600 mL. FLUIDS: 2500 mL crystalloid. COMPLICATIONS: None. FINDINGS: A viable female, score of 9 at one minute and 9 at five minute, weight of 3890 g, intact placenta, 3-vessel cord. DISPOSITION: Infant to nursery, mom into PACU stable. INDICATION: Jaquelin is a 28-year-old G3, P2 at 39 and 5 weeks' gestational age, who presents today for scheduled repeat delivery. Risks of the procedure have been discussed with her. Proper consent obtained. DESCRIPTION OF PROCEDURE: The patient was taken to the operating room where she underwent spinal anesthesia, was then placed in the dorsal lithotomy position with a leftward tilt. SCDs to lower extremities, Moss to gravity, was prepped and draped in the usual sterile fashion. A time-out was performed. The patient did receive Ancef prophylactically. Anesthesia was tested, found to be adequate. The previous Pfannenstiel scar was now excised. Subcutaneous tissue was incised down to the level of the fascia. Fascia was incised in midline lateralized on either side sharply and bluntly. The superior aspect of fascia was tented up, dissected sharply and bluntly away from underlying muscle. Similar aspect was performed in the inferior aspect of fascia, there definitely is scar tissue present. Rectus muscle around gently in the midline. Peritoneum tented upward and entered sharply. The rectus muscle, peritoneum were now lateralized bluntly. Uterine position and position palpated. A self-retaining retractor was gently placed. Uterovesical reflection was visualized. Bladder flap was created and dissected sharply and bluntly away from the lower uterine segment. Low transverse hysterotomy was now performed. Uterine cavity was entered bluntly with the scalpel. The hysterotomy was lateralized bluntly. head was lifted from the pelvis. Fundal pressure was applied. The infant's head was delivered. Nuchal cord x2 was noted to be present, this was reduced manually. Anterior shoulder, posterior shoulder, and remainder of body was delivered without difficulty. The 's oropharynx and nares bulb suctioned, cord was clamped x2 and cut. Infant was handed off to attending nursing staff. Cord arterial, cord venous, cord blood sampling were obtained. Placenta was now delivered. Uterine cavity was cleared of all clot and debris. The hysterotomy was repaired using 0 Vicryl in a continuous running locked fashion followed by re-imbricating layer. The lower uterine segment was quite thin and scarred at this point. There were re-imbricating sutures placed along the left lateral to midline aspect of the incision to help with hemostasis. Hemostasis thereafter evident. Posterior aspect of the uterus inspected. No defects or hematomas were found to be forming. Region was well irrigated and suction dried. Uterus was returned to the abdominal cavity. Colonic gutters were cleared of all clot and debris, well irrigated and suction dried. Hysterotomy once again inspected and found to be hemostatic. Self-retaining retractor now gently removed. Bladder blade was placed. Hysterotomy once again inspected and found to be hemostatic. The bladder blade was removed. Rectus muscle and peritoneum were reapproximated using 0 Vicryl in inverted mattress suture technique. Anterior aspect of the muscle, posterior aspect of the fascia closely inspected. Any areas of oozing were cauterized. The rectus fascia was now reapproximated using 0 Vicryl in continuous running fashion beginning laterally on either side and meeting in the midline. Subcutaneous tissue was well irrigated, suction dried. Any areas of oozing were cauterized. The skin edges were reapproximated using 3-0 Vicryl on a Gigi needle in subcuticular fashion followed by Dermabond and pressure dressing. Sponge, instrument, and needle counts were correct x2. The patient has tolerated the procedure well overall. She will go to PACU in stable condition with her and nursing staff at her side. JIM / MICHELLE /[id number]
[2018-12-15] MEDS: Ketorolac 30 MG/ML SDV IVPUSH SCH ×3 (02:11→13:43)
[2018-12-15] MEDS: Docusate Sodium 100 MG Cap PO SCH ×3 (02:11→23:21)
[2018-12-15] MEDS: Simethicone 80 MG Tab.Chew PO SCH ×4 (02:11→19:40)
--- NOTE | 2018-12-15 08:41 | PCM.PNPP ---
- General Info Date of Service: 12/15/18 Functional Status: Reports: Pain Controlled, Tolerating Diet, Ambulating, Urinating - Review of Systems General: Reports: Fatigue. Denies: Fever, Weakness Pulmonary: Denies: Shortness of Breath Cardiovascular: Denies: Chest Pain, Palpitations, Lightheadedness Gastrointestinal: Reports: Flatus. Denies: Abdominal Pain, Nausea, Vomiting Genitourinary: Denies: Flank Pain Musculoskeletal: Reports: No Symptoms Skin: Reports: No Symptoms Neurological: Reports: No Symptoms Psychiatric: Reports: No Symptoms - General Info Date of Service: 12/15/18 - Patient Data Vital Signs - Most Recent: Last Vital Signs Temp 36.6 C 12/15/18 07:20 Pulse 98 12/15/18 07:20 Resp 18 12/15/18 07:20 BP 127/63 12/15/18 07:20 Pulse Ox 96 12/15/18 07:20 Weight - Most Recent: 83.915 kg I&O - Last 24 Hours: Intake & Output 12/14/18 12/15/18 12/15/18 22:59 06:59 14:59 Output Total 500 900 Balance -500 -900 Lab Results - Last 24 Hours: Laboratory Results - last 24 hr 12/14/18 12/14/18 12/14/18 Range/Units 10:20 10:20 12:13 WBC 5.91 (4.0-11.0) K/uL RBC 3.61 L (4.30-5.90) M/uL Hgb 10.5 L (12.0-16.0) g/dL Hct 31.5 L (36.0-46.0) % MCV 87.3 (80.0-98.0) fL MCH 29.1 (27.0-32.0) pg MCHC 33.3 (31.0-37.0) g/dL RDW Std Deviation 43.0 (28.0-62.0) fl RDW Coeff of Ada 14 (11.0-15.0) % Plt Count 178 (150-400) K/uL MPV 9.20 (7.40-12.00) fL Nucleated RBC % 0.0 /100WBC Nucleated RBCs # 0 K/uL Cord ABG pH 7.293 (7.18-7.38) Cord ABG Base Excess -5 (-10--2) Cord VBG pH 7.342 (7.25-7.45) Cord VBG Base Excess -5 (-10--2) Blood Type A POSITIVE Antibody Screen NEGATIVE 12/15/18 Range/Units 05:00 WBC (4.0-11.0) K/uL RBC (4.30-5.90) M/uL Hgb 9.4 L (12.0-16.0) g/dL Hct 28.4 L (36.0-46.0) % MCV (80.0-98.0) fL MCH (27.0-32.0) pg MCHC (31.0-37.0) g/dL RDW Std Deviation (28.0-62.0) fl RDW Coeff of Ada (11.0-15.0) % Plt Count (150-400) K/uL MPV (7.40-12.00) fL Nucleated RBC % /100WBC Nucleated RBCs # K/uL Cord ABG pH (7.18-7.38) Cord ABG Base Excess (-10--2) Cord VBG pH (7.25-7.45) Cord VBG Base Excess (-10--2) Blood Type Antibody Screen Med Orders - Current: Current Medications Al Hydroxide/Mg Hydroxide (Mag-Al Plus) 30 ml PO Q8H PRN PRN Reason: Heartburn Bisacodyl (Dulcolax) 10 mg RECTAL ONETIME PRN PRN Reason: Constipation Diphenhydramine HCl (Benadryl) 25 mg IVPUSH Q6H PRN PRN Reason: Itching or Nausea Diphenhydramine HCl (Benadryl) 25 mg IVPUSH Q4H PRN PRN Reason: Itching Stop: 12/15/18 13:10 Docusate Sodium (Colace) 100 mg PO BID [facility] Last Admin: 12/15/18 02:11 Dose: Not Given Emollient Ointment (Lansinoh Hpa) 0 gm TOP ASDIRECTED PRN PRN Reason: Sore Nipples Fentanyl (Sublimaze) 50 mcg IVPUSH Q1H PRN PRN Reason: Pain (severe 7-10) Lactated Ringer's (Ringers, Lactated) 1,000 mls @ 500 mls/hr IV BOLUS [facility] Last Admin: 12/14/18 11:40 Dose: 500 mls/hr Oxytocin/Sodium Chloride (Oxytocin 30 Unit/500 Ml-Ns) 30 unit in 500 mls @ 250 mls/hr IV TITRATE [facility] Lactated Ringer's (Ringers, Lactated) 1,000 mls @ 125 mls/hr IV ASDIRECTED [facility] Last Admin: 12/14/18 14:37 Dose: 125 mls/hr Ibuprofen (Motrin) 800 mg PO Q8H PRN PRN Reason: mild pain or fever Ketorolac Tromethamine (Toradol) 30 mg IVPUSH Q6H [facility] Stop: 12/15/18 13:01 Last Admin: 12/15/18 02:11 Dose: Not Given Nalbuphine HCl (Nubain) 5 mg IVPUSH ASDIRECTED PRN PRN Reason: Itching Naloxone HCl (Narcan) 0.1 mg IVPUSH ONETIME PRN PRN Reason: Respiratory Depression Stop: 12/15/18 13:10 Ondansetron HCl (Zofran) 4 mg IVPUSH Q4H PRN PRN Reason: Nausea/Vomiting Last Admin: 12/14/18 15:28 Dose: 4 mg Ondansetron HCl (Zofran) 4 mg IVPUSH Q6H PRN PRN Reason: Nausea Oxycodone/Acetaminophen (Percocet 325-5 Mg) 1 tab PO Q4H PRN PRN Reason: Pain (moderate 4-6) Oxycodone/Acetaminophen (Percocet 325-5 Mg) 2 tab PO Q4H PRN PRN Reason: Pain (moderate 4-6) Oxycodone/Acetaminophen (Percocet 325-5 Mg) 2 tab PO Q6H PRN PRN Reason: Pain (moderate 4-6) Simethicone (Simethicone) 160 mg PO QID [facility] Last Admin: 12/15/18 06:22 Dose: Not Given Sodium Chloride (Saline Flush) 10 ml FLUSH ASDIRECTED PRN PRN Reason: Keep Vein Open Sodium Chloride (Saline Flush) 2.5 ml FLUSH ASDIRECTED PRN PRN Reason: Keep Vein Open Sodium Chloride (Normal Saline) 10 ml IV ASDIRECTED PRN PRN Reason: IV Use Discontinued Medications Cefazolin Sodium/Dextrose (Ancef) Confirm Administered Dose 2 gm IV .STK-MED ONE Stop: 12/14/18 12:18 Citric Acid/Sodium Citrate (Bicitra Solution) 30 ml PO ONETIME ONE Stop: 12/14/18 11:31 Last Admin: 12/14/18 15:54 Dose: Not Given Ephedrine Sulfate (Ephedrine Sulfate) Confirm Administered Dose 50 mg .ROUTE .STK-MED ONE Stop: 12/14/18 12:51 Cefazolin Sodium/Dextrose 2 gm (/ Premix) 50 mls @ 100 mls/hr IV ONETIME ONE Stop: 12/14/18 10:58 Last Admin: 12/14/18 15:54 Dose: Not Given Oxytocin/Sodium Chloride (Oxytocin 30 Unit/500 Ml-Ns) Confirm Administered Dose 30 unit in 500 mls @ as directed .ROUTE .STK-MED ONE Stop: 12/14/18 11:29 Morphine Sulfate (Duramorph Pf) Confirm Administered Dose 10 mg .ROUTE .STK-MED ONE Stop: 12/14/18 11:29 Octyl Cyanoacrylate (Dermabond Advance) Confirm Administered Dose 1 applic .ROUTE .STK-MED ONE Stop: 12/14/18 12:37 Phenylephrine HCl (Phenylephrine In Ns 100 Mcg/Ml) Confirm Administered Dose 1 mg .ROUTE .STK-MED ONE Stop: 12/14/18 12:51 - Infant Interaction Support Person: - Recovery Exam Fundal Tone: Firm Fundal Level: At Umbilicus Fundal Placement: Midline Lochia Amount: Scant Lochia Color: Rubra/Red Perineum Description: Intact, Minimal Bruising/Swelling Episiotomy/Laceration: Approximated Bladder Status: Indwelling Catheter in Place Urinary Elimination: Indwelling Catheter - Exam General: Alert, Oriented Lungs: Normal Respiratory Effort Cardiovascular: Regular Rate, Regular Rhythm GI/Abdominal Exam: Normal Bowel Sounds, Soft Extremities: Pedal Edema (1+). No: Sheila's Sign Skin: Warm, Dry, Intact Wound/Incisions: Healing Well, No Drainage. No: Erythema Neurological: No New Focal Deficit Psy/Mental Status: Alert, Normal Affect, Normal Mood - Problem List & Annotations (1) Previous section SNOMED Code(s): 826318844 Code(s): Z98.891 - HISTORY OF UTERINE SCAR FROM PREVIOUS SURGERY Status: Acute Current Visit: Yes - Problem List Review Problem List Initiated/Reviewed/Updated: Yes - My Orders Last 24 Hours: My Active Orders 12/14/18 10:00 Patient Status [ADT] Routine 12/14/18 10:29 Up ad Jenn [RC] ASDIRECTED Verify Patient Consent Obtain [RC] ASDIRECTED Sodium Chloride 0.9% [Normal Saline] 10 ml IV ASDIRECTED PRN Sodium Chloride 0.9% [Saline Flush] 10 ml FLUSH ASDIRECTED PRN Sodium Chloride 0.9% [Saline Flush] 2.5 ml FLUSH ASDIRECTED PRN Peripheral IV Insertion Adult [OM.PC] Routine Schedule Procedure [COMM] Per Unit Routine Resuscitation Status Routine 12/14/18 10:30 Lactated Ringers [Ringers, Lactated] 1,000 ml IV BOLUS Oxytocin/0.9 % Sodium Chloride [Oxytocin 30 Unit/500 ML-NS] 30 unit in 500 ml IV TITRATE 12/14/18 10:31 Notify Provider Vital Signs [RC] PRN 12/14/18 12:57 Patient Status [ADT] Routine Ambulate [RC] PER UNIT ROUTINE Communication Order [RC] PER UNIT ROUTINE Communication Order [RC] PER UNIT ROUTINE Communication Order [RC] Per Unit Routine May Shower [RC] ASDIRECTED Notify Provider Intake and Out [RC] ASDIRECTED Notify Provider Vital Signs [RC] ASDIRECTED RT Incentive Spirometry [RC] Q2HWA Vital Signs [RC] PER UNIT ROUTINE Acetaminophen/oxyCODONE [Percocet 325-5 MG] 1 tab PO Q4H PRN Acetaminophen/oxyCODONE [Percocet 325-5 MG] 2 tab PO Q4H PRN Alum Hydrox/Mag Hydrox/Simeth [Mag-Al Plus] 30 ml PO Q8H PRN Bisacodyl [Dulcolax] 10 mg RECTAL ONETIME PRN Ibuprofen [Motrin] 800 mg PO Q8H PRN Lanolin [Lansinoh HPA] See Dose Instructions TOP ASDIRECTED PRN Ondansetron [Zofran] 4 mg IVPUSH Q4H PRN diphenhydrAMINE [Benadryl] 25 mg IVPUSH Q6H PRN Abdominal Binder [OM.PC] Routine Assess Lochia [WOMSER] Per Unit Routine Assess Uterine Involution [WOMSER] Per Unit Routine Breast Pump [WOMSER] Per Unit Routine Heat Therapy [OM.PC] Routine Ice Therapy [OM.PC] Routine Peripheral IV Discontinue [OM.PC] Routine Sequential Compression Device [OM.PC] Per Unit Routine 12/14/18 12:58 Antiembolic Devices [RC] PER UNIT ROUTINE 12/14/18 13:00 Ketorolac [Toradol] 30 mg IVPUSH Q6H Lactated Ringers [Ringers, Lactated] 1,000 ml IV ASDIRECTED 12/14/18 18:00 Simethicone 160 mg PO QID 12/14/18 21:00 Docusate Sodium [Colace] 100 mg PO BID 12/14/18 Lunch Regular Diet [DIET] - Assessment Assessment:: POD 1 status post repeat c section - Plan Plan:: Continue postoperative cares, ambulate halls today.
--- NOTE | 2018-12-15 10:17 | PCM48HPAN ---
Post Anesthesia Note - EVALUATION WITHIN 48HRS OF ANESTHETIC Vital Signs in Normal Range: Yes Patient Participated in Evaluation: Yes Respiratory Function Stable: Yes Airway Patent: Yes Cardiovascular Function Stable: Yes Hydration Status Stable: Yes Pain Control Satisfactory: Yes Nausea and Vomiting Control Satisfactory: Yes Resp Rate: 14
[2018-12-15] MEDS: Ibuprofen 800 MG Tab PO PRN (19:39)
[2018-12-16] MEDS: Simethicone 80 MG Tab.Chew PO SCH ×2 (00:43→07:15)
[2018-12-16] MEDS: Ibuprofen 800 MG Tab PO PRN (04:12)
[2018-12-16 07:58] VITALS: BP 117/81
[2018-12-16] MEDS: Docusate Sodium 100 MG Cap PO SCH (08:43)
--- NOTE | 2018-12-16 08:47 | PCM.PNPP ---
- General Info Date of Service: 12/16/18 Functional Status: Reports: Pain Controlled, Tolerating Diet, Ambulating, Urinating - Review of Systems General: Denies: Fever, Weakness, Fatigue Pulmonary: Denies: Shortness of Breath Cardiovascular: Denies: Chest Pain, Palpitations, Lightheadedness Gastrointestinal: Reports: Flatus. Denies: Abdominal Pain, Nausea, Vomiting Genitourinary: Reports: No Symptoms Musculoskeletal: Reports: No Symptoms Skin: Reports: No Symptoms Neurological: Reports: No Symptoms Psychiatric: Reports: No Symptoms - General Info Date of Service: 12/16/18 - Patient Data Vital Signs - Most Recent: Last Vital Signs Temp 36.3 C 12/16/18 07:45 Pulse 93 12/16/18 07:45 Resp 17 12/16/18 07:45 BP 117/81 12/16/18 07:45 Pulse Ox 97 12/16/18 07:45 Weight - Most Recent: 83.915 kg Med Orders - Current: Current Medications Al Hydroxide/Mg Hydroxide (Mag-Al Plus) 30 ml PO Q8H PRN PRN Reason: Heartburn Bisacodyl (Dulcolax) 10 mg RECTAL ONETIME PRN PRN Reason: Constipation Diphenhydramine HCl (Benadryl) 25 mg IVPUSH Q6H PRN PRN Reason: Itching or Nausea Docusate Sodium (Colace) 100 mg PO BID [facility] Last Admin: 12/16/18 08:43 Dose: 100 mg Emollient Ointment (Lansinoh Hpa) 0 gm TOP ASDIRECTED PRN PRN Reason: Sore Nipples Last Admin: 12/15/18 08:43 Dose: 1 applic Fentanyl (Sublimaze) 50 mcg IVPUSH Q1H PRN PRN Reason: Pain (severe 7-10) Lactated Ringer's (Ringers, Lactated) 1,000 mls @ 500 mls/hr IV BOLUS [facility] Last Admin: 12/14/18 11:40 Dose: 500 mls/hr Oxytocin/Sodium Chloride (Oxytocin 30 Unit/500 Ml-Ns) 30 unit in 500 mls @ 250 mls/hr IV TITRATE [facility] Lactated Ringer's (Ringers, Lactated) 1,000 mls @ 125 mls/hr IV ASDIRECTED [facility] Last Admin: 12/14/18 14:37 Dose: 125 mls/hr Ibuprofen (Motrin) 800 mg PO Q8H PRN PRN Reason: mild pain or fever Last Admin: 12/16/18 04:12 Dose: 800 mg Nalbuphine HCl (Nubain) 5 mg IVPUSH ASDIRECTED PRN PRN Reason: Itching Ondansetron HCl (Zofran) 4 mg IVPUSH Q4H PRN PRN Reason: Nausea/Vomiting Last Admin: 12/14/18 15:28 Dose: 4 mg Ondansetron HCl (Zofran) 4 mg IVPUSH Q6H PRN PRN Reason: Nausea Oxycodone/Acetaminophen (Percocet 325-5 Mg) 1 tab PO Q4H PRN PRN Reason: Pain (moderate 4-6) Oxycodone/Acetaminophen (Percocet 325-5 Mg) 2 tab PO Q4H PRN PRN Reason: Pain (moderate 4-6) Oxycodone/Acetaminophen (Percocet 325-5 Mg) 2 tab PO Q6H PRN PRN Reason: Pain (moderate 4-6) Simethicone (Simethicone) 160 mg PO QID [facility] Last Admin: 12/16/18 07:15 Dose: Not Given Sodium Chloride (Saline Flush) 10 ml FLUSH ASDIRECTED PRN PRN Reason: Keep Vein Open Sodium Chloride (Saline Flush) 2.5 ml FLUSH ASDIRECTED PRN PRN Reason: Keep Vein Open Sodium Chloride (Normal Saline) 10 ml IV ASDIRECTED PRN PRN Reason: IV Use Discontinued Medications Cefazolin Sodium/Dextrose (Ancef) Confirm Administered Dose 2 gm IV .STK-MED ONE Stop: 12/14/18 12:18 Citric Acid/Sodium Citrate (Bicitra Solution) 30 ml PO ONETIME ONE Stop: 12/14/18 11:31 Last Admin: 12/14/18 15:54 Dose: Not Given Diphenhydramine HCl (Benadryl) 25 mg IVPUSH Q4H PRN PRN Reason: Itching Stop: 12/15/18 13:10 Ephedrine Sulfate (Ephedrine Sulfate) Confirm Administered Dose 50 mg .ROUTE .STK-MED ONE Stop: 12/14/18 12:51 Cefazolin Sodium/Dextrose 2 gm (/ Premix) 50 mls @ 100 mls/hr IV ONETIME ONE Stop: 12/14/18 10:58 Last Admin: 12/14/18 15:54 Dose: Not Given Oxytocin/Sodium Chloride (Oxytocin 30 Unit/500 Ml-Ns) Confirm Administered Dose 30 unit in 500 mls @ as directed .ROUTE .STK-MED ONE Stop: 12/14/18 11:29 Ketorolac Tromethamine (Toradol) 30 mg IVPUSH Q6H [facility] Stop: 12/15/18 13:01 Last Admin: 12/15/18 13:43 Dose: Not Given Morphine Sulfate (Duramorph Pf) Confirm Administered Dose 10 mg .ROUTE .STK-MED ONE Stop: 12/14/18 11:29 Naloxone HCl (Narcan) 0.1 mg IVPUSH ONETIME PRN PRN Reason: Respiratory Depression Stop: 12/15/18 13:10 Octyl Cyanoacrylate (Dermabond Advance) Confirm Administered Dose 1 applic .ROUTE .STK-MED ONE Stop: 12/14/18 12:37 Last Admin: 12/15/18 11:29 Dose: Not Given Phenylephrine HCl (Phenylephrine In Ns 100 Mcg/Ml) Confirm Administered Dose 1 mg .ROUTE .STK-MED ONE Stop: 12/14/18 12:51 - Interaction Support Person: - Recovery Exam Fundal Tone: Firm Fundal Level: 1 Fingerbreadths Below Umbilicus Fundal Placement: Midline Lochia Amount: None Lochia Color: Rubra/Red Perineum Description: Intact, Minimal Bruising/Swelling Episiotomy/Laceration: None Bladder Status: Voiding Urinary Elimination: Voided - Exam General: Alert, Oriented Lungs: Normal Respiratory Effort Cardiovascular: Regular Rate, Regular Rhythm GI/Abdominal Exam: Normal Bowel Sounds, Soft, No Distention Extremities: Pedal Edema (trace). No: Sheila's Sign Skin: Warm, Dry, Intact Wound/Incisions: Healing Well, No Drainage. No: Erythema Neurological: No New Focal Deficit Psy/Mental Status: Alert, Normal Affect, Normal Mood - Problem List & Annotations (1) Previous section SNOMED Code(s): 729998939 Code(s): Z98.891 - HISTORY OF UTERINE SCAR FROM PREVIOUS SURGERY Status: Acute Current Visit: Yes - Problem List Review Problem List Initiated/Reviewed/Updated: Yes - My Orders Last 24 Hours: My Active Orders 12/16/18 08:44 Ready for Discharge [RC] PER UNIT ROUTINE - Assessment Assessment:: POD 2 status post repeat c section - Plan Plan:: Patient doing well overall. She would like to go home. Discharge instructions reviewed. Follow up at [facility] 2 and 6 weeks. Infection and bleeding warnings reviewed. Discharge to home.
== END 2018-12-16 11:00 | disposition home or self-care (01) | DRG 788 ==
LOC: MW.OB 09:52
PROVIDERS: ADMIT Obstetrics & Gynecology; ATTEND Obstetrics & Gynecology
PROC: 10D00Z1 Extraction of Products of Conception, Low, Open Approach (ICD-10-PCS; principal; 2018-12-14)
DX: O34.211 Maternal care for low transverse scar from previous cesarean delivery (principal); O99.824 Streptococcus B carrier state complicating childbirth; Z37.0 Single live birth; Z3A.39 39 weeks gestation of pregnancy
CPT/HCPCS: 01961; 36415; 59025; 82803; 85014; 85018; 85027; 86850; 86900; 86901; A9270-GY; J0690; J1885; J2270; J2370; J2405; J2590; J7120